=== PATIENT | male | born 1995 | race Caucasian/White ===

== ENCOUNTER 2018-02-23 14:04 | Observation (INO) | payer OTHER ==
[~2018-02-23] VITALS: Ht 188 cm; Wt 73.5 kg
[2018-02-23] MEDS ORDERED: ASPIRIN 81 MG CHEW TAB PO ONE ×2 (14:45→16:00)
[2018-02-23 14:48] LABS: BASOPHILS % 0.5 % (0.0-1.0); EOSINOPHILS % 0.2 % (0.0-6.0); HEMATOCRIT 45.1 % (38.2-49.6); HEMOGLOBIN 15.9 g/dL (14.0-18.0); LYMPHOCYTES # (AUTO) 1.6 (1.0-3.2); LYMPHOCYTES % 27.2 % (18.0-39.1); MEAN CORPUSCULAR HEMOGLOBIN 30.8 pg (28-32); MEAN CORPUSCULAR HGB CONC 35.3 g/dL (31-35); MEAN CORPUSCULAR VOLUME 87.2 fL (81-99); MONOCYTES # (AUTO) 0.3 (0.2-0.8); MONOCYTES % 5.3 % (4.4-11.3); NEUTROPHILS % 66.6 % (38.7-80.0); PLATELET COUNT 226 x10e3/uL (140-360); RED BLOOD COUNT 5.17 x10e6/uL (4.3-5.7); RED CELL DISTRIBUTION WIDTH 12.3 % (11.7-14.4)
[2018-02-23 14:50] LABS: BILIRUBIN,URINE NEGATIVE (NEGATIVE); CLARITY,URINE CLEAR (CLEAR); COLOR,URINE YELLOW (YELLOW); LEUKOCYTE ESTERASE ,URINE NEGATIVE (NEGATIVE); NITRITE,URINE NEGATIVE (NEGATIVE); PROTEIN,URINE DIPSTICK NEGATIVE (NEGATIVE); URINE UROBILINOGEN 0.2 mg/dL (0.2 - 1)
[2018-02-23 14:51] LABS: KETONES,URINE NEGATIVE (NEGATIVE)
[2018-02-23 14:54] LABS: AMPHETAMINES SCREEN,URINE NEGATIVE (NEGATIVE); BENZODIAZEPINES SCREEN,URINE NEGATIVE (NEGATIVE); PHENCYCLIDINE SCREEN,URINE NEGATIVE (NEGATIVE)
[2018-02-23 15:07] LABS: ALANINE AMINOTRANSFERASE 22 IU/L (0-55); ALBUMIN 4.5 g/dL (3.5-5.0); ALBUMIN/GLOBULIN RATIO 1.4 (0.8-2.0); ALKALINE PHOSPHATASE 99 IU/L (40-150); ANION GAP 13.9 mmol/L (8-16); BLOOD UREA NITROGEN 10 mg/dL (7-26); BUN/CREATININE RATIO 9 (6-25); CALCIUM 10.3 mg/dL (8.4-10.2); CARBON DIOXIDE 27 mmol/L (22-29); CHLORIDE 104 mmol/L (98-107); CREATINE KINASE 486 IU/L (30-200); CREATININE, SERUM 1.17 mg/dL (0.72-1.25); EST GLOMERULAR FILTRATION RATE > 60 ML/MIN (60-); GLUCOSE 97 mg/dL (74-118); POTASSIUM 3.9 mmol/L (3.5-5.1); SODIUM 141 mmol/L (136-145)
--- NOTE | 2018-02-23 16:10 | Diagnostic Imaging Report ---
EXAMINATION: CHEST SINGLE (PORTABLE) INDICATION: Chest pain, sharp pain when breathing, upper left side. 3 weeks off and on, worse last night. \S\CHEST PAIN \S\[id number] \S\1442 \S.br\ COMPARISON: None FINDINGS: AP view TUBES and LINES: None. LUNGS: Lungs are well inflated. Lungs are clear. There is no evidence of pneumonia or pulmonary edema. PLEURA: No pleural effusion or pneumothorax. HEART AND MEDIASTINUM: The cardiomediastinal silhouette is unremarkable. BONES AND SOFT TISSUES: No acute osseous lesion. Soft tissues are unremarkable. UPPER ABDOMEN: No free air under the diaphragm. IMPRESSION: No acute thoracic abnormality. Signed by: DR. Escobar Garcia MD on 02/23/2018 4:07 PM
[2018-02-23 16:45] VITALS: BP 131/79
[2018-02-23 17:48] VITALS: BP 131/79
[2018-02-23 17:51] VITALS: BP 131/79
[2018-02-23 20:09] VITALS: BP 139/83
[2018-02-23 22:53] LABS: CREATINE KINASE 325 IU/L (30-200)
[2018-02-24 01:47] VITALS: BP 131/81
[2018-02-24 05:46] LABS: CREATINE KINASE 276 IU/L (30-200)
[2018-02-24 06:03] LABS: CHOL/HDL RATIO 2.2 (3.9-4.7)
[2018-02-24 06:07] VITALS: BP 159/87
[2018-02-24 08:00] VITALS: BP 144/85
[2018-02-24 08:24] VITALS: BP 144/85
[2018-02-24 12:00] VITALS: BP 127/72
--- NOTE | 2018-02-24 13:20 | Consultation ---
DATE OF CONSULTATION: February 24, 2018 CARDIOLOGY CONSULTATION CONSULTING PHYSICIAN: Dr. Rios Hernandez. REASON FOR CONSULTATION: Chest pain. HISTORY OF PRESENT ILLNESS: Davis Hazel is a 22-year-old male with no past medical history; however, he does report some chronic chest pains here and there and he states that he came into the ER this visit after having some chest pain and also scattered pains throughout his body since last week, Sunday. He does report that these pains are better at this point. 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 Denies chest pain at this moment, palpitations, shortness of breath, dizziness, syncope, fever, or chills. On admission, creatinine kinase noted to be quite elevated; however, improved at this point. REVIEW OF SYSTEMS: Negative except as mentioned above. PAST MEDICAL HISTORY: Scattered pains and chest pain. PAST SURGICAL HISTORY: None. FAMILY HISTORY: Noncontributory. SOCIAL HISTORY: Not a smoker, denies any illicit drug use or drinking. MEDICATIONS: Protonix 40 mg p.o. before meals. LABS: From yesterday, 02/23/2018, sodium 141, potassium 3.9, BUN 10, creatinine 1.17, AST 32, ALT 22. Creatinine kinase 486; however, improved to 276 today. CK-MB 0.80, troponin less than 0.001. Triglycerides 52, cholesterol 163, LDL 78, HDL 75. WBC 6, hemoglobin 15.9, hematocrit 45.1, platelets 226. IMAGING: Chest x-ray from yesterday with no acute thoracic abnormality. PHYSICAL EXAMINATION VITAL SIGNS: Temperature 97.4, pulse 80, respiratory rate 18, blood pressure 144/85, oxygen saturation 100% on room air. GENERAL: Alert and oriented x3, resting comfortably in bed, does not appear to be in any acute distress. NECK: Supple. No JVD noted. CARDIOVASCULAR: Regular rate and rhythm. Normal S1, S2. LUNGS: Clear to auscultation throughout. No wheezing, rhonchi, or crackles. ABDOMEN: Soft, nontender. Normoactive bowel sounds. EXTREMITIES: Lower extremities, no edema. TELEMETRY: Sinus rhythm. IMPRESSION 1. Dehydration. 2. Muscle breakdown secondary to increased workout. 3. Atypical chest pains. RECOMMENDATIONS: Okay to discharge this patient from cardiology standpoint. Chest pains and body ache secondary to elevated creatinine kinase and muscle injury. Recommended increased hydration to 4 to 5 liters of water per day. Also stop exercising at this moment until seen in [facility]et office in the next 1 week. We will repeat lab work as outpatient and also repeat an echocardiogram at that point. Okay to discharge this patient. Dictated by: Deborah Swan NP Job#: [id number] CORI
[2018-02-25] MEDS ORDERED: PANTOPRAZOLE SOD 40 MG TABEC PO SCH (07:30)
--- NOTE | 2018-05-04 19:30 | Discharge Summary ---
DISCHARGE DIAGNOSES: 1. Chest pain rule out myocardial infarction. 2. History of arrhythmia and reflux. HISTORY OF PRESENT ILLNESS AND HOSPITAL COURSE: Patient is a 22-year-old gentleman who presented with history of PVCs where he felt like he was having more arrhythmia with some associated atypical chest pain where he did rule out for [facility]. Telemetry showed no abnormalities and since patient was feeling good, he wanted to go ahead and go home and follow up with his outpatient physician. Please see hospital chart for full details. IAM NEWMAN MD Job#: [id number] GABI
== END 2018-02-24 15:50 | disposition home or self-care (01) ==
LOC: ER 14:04 → ERHOLD 15:49 → MED/SURG2 16:12
PROVIDERS: ADMIT Internal Medicine; ATTEND Internal Medicine
DX: R07.89 Other chest pain (principal); I49.3 Ventricular premature depolarization; E86.0 Dehydration; R03.0 Elevated blood-pressure reading, without diagnosis of hypertension; Z82.49 Family history of ischemic heart disease and other diseases of the circulatory system; Z88.2 Allergy status to sulfonamides; K21.9 Gastro-esophageal reflux disease without esophagitis
CPT/HCPCS: 36415 ×2; 71045; 80053; 80061; 80307; 81001; 82550 ×2; 82553 ×2; 84484 ×2; 85025; 93005; 99284; G0378 ×2; S0164